=== PATIENT | female | born 1950 | race American Indian/Alaskan Native ===

== ENCOUNTER 2017-04-15 02:19 | Emergency (ER) | payer MEDICARE, BC ==
[2017-04-15 02:44] VITALS: BP 109/76
[2017-04-15] MEDS: Sodium Chloride 0.9% 1,000 ML IV SCH (04:16)
[2017-04-15] MEDS: Ondansetron 4 MG/2 ML SDV IVPUSH ONE (04:17)
[2017-04-15] MEDS: HYDROmorphone 0.5 MG/0.5 ML SYRINGE IVPUSH STA (04:17)
[2017-04-15] MEDS: Iopamidol 612 MG/ML 150 ML Bottle IVPUSH ONE (06:09)
[2017-04-15] MEDS: Diatrizoate Meglumine/Diatrizoate Sodium 37% 120 ML Bottle PO ONE (06:09)
--- NOTE | 2017-04-15 07:09 | CT ---
CT abdomen and pelvis Technique: Multiple axial sections were obtained from above the dome of the diaphragm inferiorly through the pubic symphysis. Intravenous contrast and oral contrast has been given. Delayed images were obtained through the bladder. Comparison: No previous abdominal imaging is available. Findings: Visualized lung bases shows nothing acute. Low-density lesion compatible with cyst is identified within the dome of the right lobe of the liver measuring 1.6 cm. No additional abnormality is identified within the liver. Spleen appears within normal limits. Adrenal glands show no nodule. Right kidney shows a small exophytic cortical cyst measuring 1.4 cm. 2 small cortical cysts are noted within the left kidney as well as a larger cyst within the left kidney measuring 5.7 cm. Kidneys show no hydronephrosis. Aorta shows atherosclerotic change. No aneurysm is seen. No retroperitoneal adenopathy is seen. No mesenteric abnormalities are identified. Appendix is equivocally seen which appears short in size and appears normal in thickness. No inflammatory change is seen within the right lower abdomen. No bowel dilatation is seen. Minimal diverticuli is seen within the sigmoid colon without diverticulitis. Numerous phleboliths are seen within the pelvis. Delayed images shows contrast within the distal ureters and within the bladder. No free fluid or inflammatory change is seen. Fluid is seen within the colon which can be seen normally as well as with diarrhea. Bone window settings were reviewed which shows scattered degenerative change within the spine most prominent at L4-L5 and L5-S1 with disc space narrowing, vacuum phenomena and degenerative apophyseal change. Impression: 1. Fluid within the colon which is incidental if patient has no symptoms of diarrhea. 2. Incidental renal cysts. 3. Other incidental findings. Nothing acute is appreciated on CT study of the abdomen and pelvis. No etiology is identified to explain the patient's right lower quadrant pain. Diagnostic code #2
--- NOTE | 2017-04-15 07:35 | EDM.PDOC ---
ED HPI GENERAL MEDICAL PROBLEM - General Chief Complaint: Abdominal Pain Stated Complaint: ABDOMINAL PAIN/NAUSEA Time Seen by Provider: 04/15/17 03:34 Source of Information: Reports: Patient History Limitations: Reports: No Limitations Right Abdomen Pain Score (Numeric/FACES): 7 - Related Data Allergies Allergy/AdvReac Type Severity Reaction Status Date / Time capsaicin Allergy Rash Verified 04/15/17 02:45 chlorhexidine Allergy Rash Verified 04/15/17 02:45 methadone [Methadone] AdvReac Vomiting Verified 04/15/17 02:45 Home Meds: Home Meds Acetaminophen with Codeine [Acetaminophen-Cod #3] 2 tab PO Q6H PRN #60 tablet [Rx] Omeprazole 40 mg PO DAILY 04/15/17 [History] Topiramate [Topamax] 25 mg PO BID 04/15/17 [History] atorvaSTATin [Lipitor] 20 mg PO DAILY 04/15/17 [History] Past Medical History Cardiovascular History: Reports: High Cholesterol Gastrointestinal History: Reports: Diverticulosis, GERD Neurological History: Reports: Migraines Oncologic (Cancer) History: Reports: Basal Cell Carcinoma (right nose) - Past Surgical History HEENT Surgical History: Reports: Naso-Sinus Surgery (x 3), Tonsillectomy GI Surgical History: Reports: Cholecystectomy, Colonoscopy, EGD Female Surgical History: Reports: Section (x 1), Hysterectomy, Salpingo-Oophorectomy Musculoskeletal Surgical History: Reports: Knee Replacement (right), Other (See Below) (Left hammertoe) Social & Family History - Tobacco Use Smoking Status *Q: Never Smoker Second Hand Smoke Exposure: No - Caffeine Use Caffeine Use: Reports: None - Alcohol Use Alcohol Use History: Yes Days Per Week of Alcohol Use: 0 Number of Drinks Per Day: 0 Total Drinks Per Week: 0 Alcohol Use Frequency: Rarely - Recreational Drug Use Recreational Drug Use: No - Living Situation & Occupation Living situation: Reports: , with Spouse Occupation: Retired ED ROS GENERAL - Review of Systems Review Of Systems: ROS reveals no pertinent complaints other than HPI. ED EXAM, GI/ABD - Physical Exam Exam: See Below Exam Limited By: No Limitations General Appearance: Alert, WD/WN, No Apparent Distress Eyes: Bilateral: Normal Appearance, EOMI Ears: Normal External Exam, Hearing Grossly Normal Nose: Normal Inspection, No Blood Throat/Mouth: Normal Inspection, Normal Lips, Normal Voice, No Airway Compromise Head: Atraumatic, Normocephalic Neck: Normal Inspection, Full Range of Motion Respiratory/Chest: No Respiratory Distress, Lungs Clear, Normal Breath Sounds, No Accessory Muscle Use Cardiovascular: Normal Peripheral Pulses, Regular Rate, Rhythm, No Gallop, No JVD, No Murmur, No Rub GI/Abdominal Exam: Normal Bowel Sounds, Soft, No Organomegaly, No Distention, No Abnormal Bruit, No Mass, Pelvis Stable, Tender (Right lower quadrant only. Nontender elsewhere.), Other (Obese. Psoas sign positive. Obturator sign positive. Heel drop sign positive. Rovsing sign negative.). No: Rebound (Female) Exam: Deferred Rectal (Female) Exam: Deferred Back Exam: Normal Inspection, Full Range of Motion. No: CVA Tenderness (L), CVA Tenderness (R) Extremities: Normal Inspection, Normal Range of Motion, No Pedal Edema, Normal Capillary Refill Neurological: Alert, Oriented, Normal Cognition, No Motor/Sensory Deficits Psychiatric: Normal Affect Skin Exam: Warm, Dry, Intact, Normal Color, No Rash Course - Vital Signs Last Recorded V/S: Last Vital Signs Temp 36.9 C 04/15/17 02:39 Pulse 87 04/15/17 02:39 Resp 18 04/15/17 02:39 BP 109/76 04/15/17 02:39 Pulse Ox 94 L 04/15/17 02:39 - Orders/Labs/Meds Labs: Laboratory Tests 04/15/17 04/15/17 04/15/17 Range/Units 03:29 03:29 06:35 WBC 8.42 (3.98-10.04) K/mm3 RBC 5.02 (3.98-5.22) M/mm3 Hgb 15.6 (11.2-15.7) gm/L Hct 47.0 H (34.1-44.9) % MCV 93.6 (79.4-94.8) fl MCH 31.1 (25.6-32.2) pg MCHC 33.2 (32.2-35.5) g/dl RDW Std Deviation 44.3 (36.4-46.3) fL Plt Count 181 L (182-369) K/mm3 MPV 10.2 (9.4-12.3) fl Neutrophils % (Manual) 86 H (40-60) % Band Neutrophils % 0 (0-10) % Lymphocytes % (Manual) 12 L (20-40) % Atypical Lymphs % 0 % Monocytes % (Manual) 1 L (2-10) % Eosinophils % (Manual) 1 (0.7-5.8) % Basophils % (Manual) 0 L (0.1-1.2) Platelet Estimate Adequate RBC Morph Comment Normal Sodium 140 (136-145) mEq/L Potassium 4.2 (3.5-5.1) mEq/L Chloride 107 (98-107) mEq/L Carbon Dioxide 21 (21-32) mEq/L Anion Gap 16.2 H (5-15) BUN 15 (7-18) mg/dL Creatinine 0.9 (0.55-1.02) mg/dL Est Cr Clr Drug Dosing 51.55 mL/min Estimated GFR (MDRD) > 60 (>60) mL/min BUN/Creatinine Ratio 16.7 (14-18) Glucose 108 (80-115) mg/dL Calcium 8.7 (8.5-10.1) mg/dL Total Bilirubin 0.6 (0.2-1.0) mg/dL AST 25 (15-37) U/L ALT 45 (14-59) U/L Alkaline Phosphatase 105 (46-116) U/L Total Protein 7.3 (6.4-8.2) g/dl Albumin 3.6 (3.4-5.0) g/dl Globulin 3.7 gm/dL Albumin/Globulin Ratio 1.0 (1-2) Lipase 98 (73-393) U/L Urine Color Yellow (Yellow) Urine Appearance Clear (Clear) Urine pH 6.0 (5.0-8.0) Ur Specific [place] 1.015 (1.005-1.030) Urine Protein Negative (Negative) Urine Glucose (UA) Negative (Negative) Urine Ketones Negative (Negative) Urine Occult Blood 2+ H (Negative) Urine Nitrite Negative (Negative) Urine Bilirubin Negative (Negative) Urine Urobilinogen 0.2 (0.2-1.0) Ur Leukocyte Esterase Negative (Negative) Urine RBC 5-10 H (0-5) /hpf Urine WBC 0-5 (0-5) /hpf Ur Epithelial Cells 0-5 (0-5) /hpf Urine Bacteria Few (FEW) /hpf Urine Mucus Few (FEW) /hpf Meds: Medications Discontinued Medications Generic Name Dose Route Start Last Admin Trade Name Lalo PRN Reason Stop Dose Admin Diatrizoate Meglum/Diatrizoate Sod 90 ml 04/15/17 05:34 04/15/17 06:09 Gastrografin 37% PO 04/15/17 05:35 90 ml ONETIME ONE Administration Hydromorphone HCl 1 mg 04/15/17 04:03 04/15/17 04:17 Dilaudid IVPUSH 04/15/17 04:04 1 mg ONETIME STA Administration Sodium Chloride 1,000 mls @ 150 mls/hr 04/15/17 04:15 04/15/17 04:16 Normal Saline IV 150 mls/hr ASDIRECTED FARHAN Administration Iopamidol 120 ml 04/15/17 05:34 04/15/17 06:09 Isovue-300 (61%) IVPUSH 04/15/17 05:35 120 ml ONETIME ONE Administration Ondansetron HCl 4 mg 04/15/17 04:02 04/15/17 04:17 Zofran IVPUSH 04/15/17 04:03 4 mg ONETIME ONE Administration - Re-Assessments/Exams Free Text/Narrative Re-Assessment/Exam: 04/15/17 07:29 CT of the abdomen and pelvis with oral and IV contrast is read by Dr. Mao as: 1. Fluid within the colon which is incidental if patient has no symptoms of diarrhea. 2. Incidental renal cysts. 3. Other incidental findings. Nothing acute is appreciated on CT study of the abdomen and pelvis. No etiology is identified to explain the patient's right lower quadrant pain. 04/15/17 07:34 Test results discussed with the patient and her . Today's workup is unremarkable, and does not explain the cause of the patient's right lower quadrant abdominal pain. I'm recommending she take [id number] Tylenol or ibuprofen as needed. I'm recommending that she follow-up with her PCP, Mary Magana, should her symptoms persist. Departure - Departure Time of Disposition: 07:35 Disposition: Home, Self-Care 01 Condition: Good Clinical Impression: Right lower quadrant abdominal pain of unknown etiology - Discharge Information Instructions: Abdominal Pain, Adult, [id number] Referrals: Karlee Magana [facility] [Primary Care Provider] - Forms: ED Department Discharge Additional Instructions: You were seen in the emergency room for lower right abdominal pain, bloating, nausea, and watery diarrhea. Workup in the ER included blood work, a urinalysis, and a CT scan of your abdomen and pelvis. Your entire workup was unremarkable, and does not explain the cause of your symptoms. We recommend you take [id number] Tylenol or ibuprofen as needed for discomfort. If your symptoms persist, please follow-up with your PCP, Mary Magana, as needed. If any other problems, please do not hesitate to return to the ER.
== END 2017-04-15 07:51 | disposition home or self-care (01) ==
LOC: JD.ED 02:19
DX: R10.31 Right lower quadrant pain (principal); E78.00 Pure hypercholesterolemia, unspecified; Z88.8 Allergy status to other drugs, medicaments and biological substances; Z79.899 Other long term (current) drug therapy
CPT/HCPCS: 36415; 74177; 80053; 81001; 83690; 85025; 96361; 96374; 96375; 99284; J1170; J2405; J7040; P9612; Q9963; Q9967

== ENCOUNTER 2018-06-06 21:43 | Emergency (ER) | payer MEDICARE, BC ==
[2018-06-06 21:55] VITALS: BP 150/95
--- NOTE | 2018-06-06 22:12 | EDM.PDOC ---
ED HPI GENERAL MEDICAL PROBLEM - General Chief Complaint: Respiratory Problem Stated Complaint: fever cough abdominal pain Time Seen by Provider: 06/06/18 22:11 - History of Present Illness INITIAL COMMENTS - FREE TEXT/NARRATIVE: 68-year-old female comes into the emergency room with a 2 to three-day history of cough that is progressively getting worse she's having some abdominal discomfort started after the cough she wonders if her diverticulitis is getting worse. This started 3 days ago the cough is getting a little bit worse is nonproductive dry hacking irritation cough she feels warm at times. She has some abdominal discomfort without nausea vomiting constipation or diarrhea. She has a history of diverticulosis and still has her appendix. She has no history of coronary artery disease. Abdominal Pain Score (Numeric/FACES): 9 - Related Data Allergies Allergy/AdvReac Type Severity Reaction Status Date / Time capsaicin Allergy Rash Verified 04/15/17 02:45 chlorhexidine Allergy Rash Verified 04/15/17 02:45 Iodinated Contrast- Oral and Allergy Rash Verified 06/06/18 21:53 IV Dye methadone [Methadone] AdvReac Vomiting Verified 04/15/17 02:45 Home Meds: Home Meds Acetaminophen with Codeine [Acetaminophen-Cod #3] 2 tab PO Q6H PRN #60 tablet [Rx] Omeprazole 40 mg PO DAILY 04/15/17 [History] Topiramate [Topamax] 25 mg PO BID 04/15/17 [History] atorvaSTATin [Lipitor] 20 mg PO DAILY 04/15/17 [History] Doxycycline Hyclate 100 mg PO Q12H #20 capsule 06/06/18 [Rx] Past Medical History Other HEENT History: 3 sinus surgerys Cardiovascular History: Reports: High Cholesterol, Hypertension Gastrointestinal History: Reports: Diverticulosis, GERD 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: Musculoskeletal History: Reports: Arthritis Neurological History: Reports: Migraines Psychiatric History: Reports: Anxiety Endocrine/Metabolic History: Reports: Hyperthyroidism Hematologic History: Reports: Blood Transfusion(s) Oncologic (Cancer) History: Reports: Basal Cell Carcinoma Other Oncologic History: basal cell carcinma on right side of nose - Past Surgical History HEENT Surgical History: Reports: Naso-Sinus Surgery, Tonsillectomy GI Surgical History: Reports: Cholecystectomy, Colonoscopy, EGD Female Surgical History: Reports: Section, Hysterectomy, Salpingo- Oophorectomy Musculoskeletal Surgical History: Reports: Knee Replacement Social & Family History - Tobacco Use Smoking Status *Q: Former Smoker Used Tobacco, but Quit: Yes Month/Year Tobacco Last Used: 1987 - Caffeine Use Caffeine Use: Reports: None - Recreational Drug Use Recreational Drug Use: No - Living Situation & Occupation Living situation: Reports: , with Spouse Occupation: Retired ED ROS GENERAL - Review of Systems Review Of Systems: See Below Constitutional: Reports: Fever. Denies: Chills, Diaphoresis HEENT: Reports: No Symptoms Respiratory: Reports: Cough. Denies: Sputum Cardiovascular: Reports: Other (Discomfort from the cough) Endocrine: Reports: No Symptoms GI/Abdominal: Reports: Abdominal Pain, Other (Suspect a lot of her discomfort is secondary to the cough is discomfort seems to be getting worse longer the cough goes on and really with no other gastrointestinal symptoms). Denies: Constipation, Diarrhea, Nausea, Vomiting Musculoskeletal: Reports: Other Skin: Reports: No Symptoms (She's had some generalized achiness) Neurological: Reports: No Symptoms ED EXAM, GENERAL - Physical Exam Exam: See Below Exam Limited By: No Limitations General Appearance: Alert, No Apparent Distress Eye Exam: Bilateral Eye: Normal Inspection Ears: Normal External Exam, Normal Canal, Hearing Grossly Normal, Normal TMs Nose: Normal Inspection Throat/Mouth: Normal Inspection Head: Atraumatic, Normocephalic Neck: Normal Inspection, Supple, Non-Tender, Full Range of Motion Respiratory/Chest: No Respiratory Distress, Lungs Clear, Normal Breath Sounds Cardiovascular: Normal Peripheral Pulses, Regular Rate, Rhythm, No Edema GI/Abdominal: Normal Bowel Sounds, Soft, Other (Vague discomfort seems to be worse along the lower ribs in the anterior abdomen no rigidity rebound or guarding) Neurological: Alert, Oriented, Normal Cognition Course - Vital Signs Last Recorded V/S: Last Vital Signs Temp 37.9 C 06/06/18 21:53 Pulse 96 06/06/18 21:53 Resp 16 06/06/18 21:53 BP 150/95 H 06/06/18 21:53 Pulse Ox 92 L 06/06/18 21:53 - Orders/Labs/Meds Orders: Active Orders 24 hr Category Date Time Status EKG Documentation Completion [RC] STAT Care 06/06/18 22:18 Active Chest 2V [CR] Stat Exams 06/06/18 22:18 Taken Labs: Laboratory Tests 06/06/18 06/06/18 Range/Units 22:38 22:38 WBC 4.67 (3.98-10.04) K/mm3 RBC 4.40 (3.98-5.22) M/mm3 Hgb 14.0 (11.2-15.7) gm/L Hct 42.0 (34.1-44.9) % MCV 95.5 H (79.4-94.8) fl MCH 31.8 (25.6-32.2) pg MCHC 33.3 (32.2-35.5) g/dl RDW Std Deviation 44.0 (36.4-46.3) fL Plt Count 143 L (182-369) K/mm3 MPV 10.2 (9.4-12.3) fl Neutrophils % (Manual) 73 H (40-60) % Band Neutrophils % 2 (0-10) % Lymphocytes % (Manual) 21 (20-40) % Atypical Lymphs % 0 % Monocytes % (Manual) 4 (2-10) % Eosinophils % (Manual) 0 L (0.7-5.8) % Basophils % (Manual) 0 L (0.1-1.2) Platelet Estimate Adequate Plt Morphology Comment Normal RBC Morph Comment Normal Sodium 135 L (136-145) mEq/L Potassium 3.7 (3.5-5.1) mEq/L Chloride 101 (98-107) mEq/L Carbon Dioxide 22 (21-32) mEq/L Anion Gap 15.7 H (5-15) BUN 8 (7-18) mg/dL Creatinine 0.8 (0.55-1.02) mg/dL Est Cr Clr Drug Dosing 57.22 mL/min Estimated GFR (MDRD) > 60 (>60) mL/min BUN/Creatinine Ratio 10.0 L (14-18) Glucose 109 (80-115) mg/dL Calcium 8.8 (8.5-10.1) mg/dL Total Bilirubin 0.6 (0.2-1.0) mg/dL AST 21 (15-37) U/L ALT 30 (14-59) U/L Alkaline Phosphatase 88 (46-116) U/L Troponin I < 0.017 (0.00-0.056) ng/mL Total Protein 7.6 (6.4-8.2) g/dl Albumin 3.6 (3.4-5.0) g/dl Globulin 4.0 gm/dL Albumin/Globulin Ratio 0.9 L (1-2) Meds: Medications Discontinued Medications Generic Name Dose Route Start Last Admin Trade Name Lalo PRN Reason Stop Dose Admin Albuterol 8 gm 06/06/18 22:26 06/06/18 22:47 Proventil Hfa INH 06/06/18 22:27 Not Given ONETIME ONE Albuterol 6.7 gm 06/06/18 22:45 06/06/18 23:03 Proventil Hfa INH 06/06/18 22:46 2 puff ONETIME ONE Administration - Re-Assessments/Exams Free Text/Narrative Re-Assessment/Exam: 06/06/18 23:39 Chest x-ray shows questionable retrocardiac infiltrate that is barely seen in the right lower lobe on the AP is somewhat rotated. Patient be started on a week 's worth of doxycycline 100 mg twice a day she'll be given guaifenesin with codeine 100 mg guaifenesin 6.33 mg codeine and 5 mL of solution 15 mL every 4-6 hours 473 mL dispensed she is started on albuterol MDI. Departure - Departure Time of Disposition: 23:40 Disposition: Home, Self-Care 01 Clinical Impression: Bronchitis, Pneumonia - Discharge Information Prescriptions: Doxycycline Hyclate 100 mg PO Q12H #20 capsule Referrals: PCP,Unknown [Primary Care Provider] - Forms: ED Department Discharge Additional Instructions: Return to the emergency room with any questions problems worsening symptoms. Take the antibiotics as directed. Use the inhaler as directed 2 puffs every 4 hours while awake. Use the cough syrup as needed. Take the antibiotics until all gone. Follow-up in the clinic at the end of the week if needed - My Orders Last 24 Hours: My Active Orders 06/06/18 22:18 EKG Documentation Completion [RC] STAT Chest 2V [CR] Stat - Assessment/Plan Last 24 Hours: My Active Orders 06/06/18 22:18 EKG Documentation Completion [RC] STAT Chest 2V [CR] Stat
[2018-06-06] MEDS ORDERED: Albuterol 6.7 GM Inhaler INH ONE ×2 (22:26→22:45)
[2018-06-06] MEDS ORDERED: Doxycycline 100 MG Cap PO ONE (23:42)
[2018-06-06] MEDS ORDERED: Azithromycin 250 MG Tab PO ONE (23:47)
--- NOTE | 2018-06-07 06:27 | CR ---
Chest: Two views of the chest were obtained. Comparison: Prior chest x-ray of 11/03/15. Heart size is normal. Tortuous thoracic aorta is seen. Fullness is noted within the right hilar region. This appears fairly stable from previous exam. Perihilar markings are minimally increased most likely representing bronchitis. Lungs otherwise are clear. Impression: 1. Possible mild bronchitis. 2. Fullness within the right hilar region believed to be fairly stable. Diagnostic code #3
[2018-06-07] MEDS ORDERED: Azithromycin 250 MG Tab PO ONE (23:47)
== END 2018-06-06 23:57 | disposition home or self-care (01) ==
LOC: JD.ED 21:43
DX: J18.9 Pneumonia, unspecified organism (principal); J40 Bronchitis, not specified as acute or chronic; Z88.8 Allergy status to other drugs, medicaments and biological substances; Z79.899 Other long term (current) drug therapy; Z87.891 Personal history of nicotine dependence
CPT/HCPCS: 36415; 71046; 80053; 84484; 85007; 85027; 87804; 93005; 94640; 99284; A9270; 99283

== ENCOUNTER 2018-06-18 19:07 | Emergency (ER) | payer MEDICARE, BC ==
[2018-06-18 19:27] VITALS: BP 160/81
[2018-06-18] MEDS ORDERED: Ibuprofen 600 MG Tab PO ONE (19:42)
--- NOTE | 2018-06-18 19:50 | EDM.PDOC ---
ED HPI GENERAL MEDICAL PROBLEM - General Chief Complaint: Trauma Stated Complaint: FELL ON RIGHT SIDE INJURIED FACE AND HAND Time Seen by Provider: 06/18/18 19:24 Source of Information: Reports: Patient, Family (), RN Notes Reviewed History Limitations: Reports: No Limitations - History of Present Illness INITIAL COMMENTS - FREE TEXT/NARRATIVE: The patient states that she tripped and fell on a wooden floor in her home around 17:00 this evening. She states that she went down fast, initially landing on her right knee, then falling forward onto her right upper extremity and striking her face. There was no loss of consciousness. The patient presents with pain to her right elbow, her right forearm, her right wrist, and her right knee. She also has a swollen upper lip, and states that she had initially tasted some blood. She also has a contusion just over her right eye. The patient's PCP is Dr. Kayleen Aguiar. Right Knee Pain Score (Numeric/FACES): 10 Right Hand Pain Score (Numeric/FACES): 10 - Related Data Allergies Allergy/AdvReac Type Severity Reaction Status Date / Time capsaicin Allergy Rash Verified 06/18/18 19:22 chlorhexidine Allergy Rash Verified 06/18/18 19:22 doxycycline Allergy Cannot Verified 06/18/18 19:22 Remember Iodinated Contrast- Oral and Allergy Rash Verified 06/18/18 19:22 IV Dye methadone [Methadone] AdvReac Vomiting Verified 06/18/18 19:22 Home Meds: Home Meds Acetaminophen with Codeine [Acetaminophen-Cod #3] 2 tab PO Q6H PRN #60 tablet [Rx] Omeprazole 40 mg PO DAILY 04/15/17 [History] Topiramate [Topamax] 25 mg PO BID 04/15/17 [History] atorvaSTATin [Lipitor] 20 mg PO DAILY 04/15/17 [History] Past Medical History Cardiovascular History: Reports: High Cholesterol Gastrointestinal History: Reports: Diverticulosis, GERD [employer] SOFTWARE [employer]ER History: Reports: Musculoskeletal History: Reports: Osteoarthritis Neurological History: Reports: Migraines Endocrine/Metabolic History: Reports: Obesity/BMI 30+ Hematologic History: Reports: Blood Transfusion(s) Oncologic (Cancer) History: Reports: Basal Cell Carcinoma (right nose) - Past Surgical History HEENT Surgical History: Reports: Naso-Sinus Surgery (x 3), Tonsillectomy GI Surgical History: Reports: Cholecystectomy (1998), Colonoscopy (x 1), EGD (x 2) Female Surgical History: Reports: Section (x 1), Hysterectomy ( complete), Salpingo-Oophorectomy Musculoskeletal Surgical History: Reports: Knee Replacement (right, 2013), Other (See Below) (Left marissa) Social & Family History - Tobacco Use Smoking Status *Q: Never Smoker - Caffeine Use Caffeine Use: Reports: None - Alcohol Use Alcohol Use History: Yes Alcohol Use Frequency: Rarely - Recreational Drug Use Recreational Drug Use: No - Living Situation & Occupation Living situation: Reports: , with Spouse Occupation: Retired Review of Systems - Review of Systems Review Of Systems: ROS reveals no pertinent complaints other than HPI. ED EXAM, GENERAL - Physical Exam Exam: See Below Exam Limited By: No Limitations General Appearance: Alert, WD/WN, No Apparent Distress Eye Exam: Bilateral Eye: EOMI, Normal Inspection Ears: Normal External Exam, Hearing Grossly Normal Nose: Normal Inspection Throat/Mouth: Normal Inspection, Normal Teeth, Normal Gums, Normal Oropharynx, Normal Voice, No Airway Compromise, Other (Sqollen upper lip. Small abrasions noted on the lip, but no laceration.) Head: Normocephalic, Other (Small area of erythema and minimal swelling to the forehead just over the right eye) Neck: Normal Inspection, Supple, Non-Tender, Full Range of Motion Respiratory/Chest: No Respiratory Distress, Lungs Clear, Normal Breath Sounds, No Accessory Muscle Use Cardiovascular: Normal Peripheral Pulses, Regular Rate, Rhythm, No Gallop, No JVD, No Murmur, No Rub Peripheral Pulses: 4+: Radial (L) GI/Abdominal: Normal Bowel Sounds, Soft, Non-Tender, No Organomegaly, No Distention, No Abnormal Bruit, No Mass, Other (Obese) (Female) Exam: Deferred Rectal (Female) Exam: Deferred Back Exam: Normal Inspection, Full Range of Motion, NT Extremities: Normal Capillary Refill, Other (No visible abnormality to the right upper arm, elbow, or forearm, although the patient reports mild tenderness to palpation of the lateral and medial aspects of the elbow. No tenderness to the olecranon. Pain is not induced with compression of the mid forearm, and the patient's forearm is not tender to palpation. There is a sizable hematoma to the dorsal aspect of the right hand, centered over the 4th metacarpal bone. The patient reports pain when attempting to move her 4th and 5th fingers. Neurovascular status of the right upper extremity is intact. No visible abnormality to the patient's right knee, other than a well-healed midline anterior surgical scar. The patient reports tenderness to palpation of the anterior knee. Neurovascular status of the right lower extremity is intact.) Neurological: Alert, Oriented, Normal Cognition, No Motor/Sensory Deficits Psychiatric: Normal Affect Skin Exam: Warm, Dry, Intact, Normal Color, No Rash Course - Vital Signs Last Recorded V/S: Last Vital Signs Temp 36.6 C 06/18/18 19:22 Pulse 64 06/18/18 19:22 Resp 18 06/18/18 19:22 BP 160/81 H 06/18/18 19:22 Pulse Ox 94 L 06/18/18 19:22 - Orders/Labs/Meds Orders: Active Orders 24 hr Category Date Time Status Forearm 2V Rt [CR] Stat Exams 06/18/18 19:42 Ordered Hand Comp Min 3V Rt [CR] Stat Exams 06/18/18 19:43 Ordered Knee 3V Rt [CR] Stat Exams 06/18/18 19:44 Taken Meds: Medications Discontinued Medications Generic Name Dose Route Start Last Admin Trade Name Freq PRN Reason Stop Dose Admin Ibuprofen 600 mg 06/18/18 19:42 06/18/18 19:52 Motrin PO 06/18/18 19:43 600 mg ONETIME ONE Administration - Re-Assessments/Exams Free Text/Narrative Re-Assessment/Exam: 06/18/18 19:46 The patient has relatively minor pain and tenderness to her right elbow, pain but no tenderness to her right forearm, and a sizable hematoma to her posterior right hand. She is also complaining of pain to her anterior right knee, although no visible abnormality is seen. I have ordered x-rays of her right forearm, which will include the elbow, her right hand, and right knee. The patient was offered pain medication and elected to take ibuprofen. 06/18/18 20:46 2-view radiographs of the right forearm appear to be normal. No fractures or dislocations identified. Formal read per the Radiologist pending. 4-view radiographs of the right hand appear to demonstrate significant degenerative joint changes, but no fractures or dislocations. Formal read per the Radiologist pending. 2-view radiographs of the right knee, including a sunrise view, appear to demonstrate total knee arthroplasty hardware in good position. No patellar fracture identified. Formal read per the Radiologist pending. 06/18/18 20:51 X-ray results discussed with the patient and her . The patient appears to have several contusions, but no serious injuries. I'm recommending that she ice her hand for the next couple of days to help minimize swelling, and take [id number] ibuprofen as needed for discomfort. Departure - Departure Time of Disposition: 20:52 Disposition: Home, Self-Care 01 Condition: Good Clinical Impression: Fall at home, Traumatic hematoma of right hand, Multiple contusions - Discharge Information *PRESCRIPTION DRUG MONITORING PROGRAM REVIEWED*: Not Applicable *COPY OF PRESCRIPTION DRUG MONITORING REPORT IN PATIENT SHARITA: Not Applicable Referrals: Kayleen Aguiar MD [Ordering Only Provider] - Forms: ED Department Discharge Additional Instructions: You were seen in the emergency room after tripping and falling at home, injuring your upper lip, right arm, right hand, and right knee. Workup in the ER included x-rays of your right forearm, your right hand, and right knee. All returned negative. No broken bones were found. We recommend that you continue to ice the back of your right hand for the next 2 days, to help minimize swelling. Take [id number] ibuprofen, 2-3 tablets (400-600 mg) every 8 hours, with food, as needed for discomfort. If any other problems, please do not hesitate to return to the ER. - My Orders Last 24 Hours: My Active Orders 06/18/18 19:42 Forearm 2V Rt [CR] Stat 06/18/18 19:43 Hand Comp Min 3V Rt [CR] Stat 06/18/18 19:44 Knee 3V Rt [CR] Stat - Assessment/Plan Last 24 Hours: My Active Orders 06/18/18 19:42 Forearm 2V Rt [CR] Stat 06/18/18 19:43 Hand Comp Min 3V Rt [CR] Stat 06/18/18 19:44 Knee 3V Rt [CR] Stat
--- NOTE | 2018-06-19 05:52 | CR ---
Right knee: AP, lateral and sunrise patellar views of the right knee were obtained. Comparison: No previous knee exam. Knee prosthesis is seen. Components are aligned. Underlying bony structures are intact. Impression: 1. Knee prosthesis. Nothing acute is seen on right knee exam. Diagnostic code #2
--- NOTE | 2018-06-19 06:27 | CR ---
Right hand: Four views of the right hand were obtained. Comparison: No previous hand exam. Severe degenerative change is noted within the CMC joint of the thumb. Degenerative change is also scattered within the DIP and PIP joints. Bony structures are osteopenic. Soft tissue swelling is noted dorsally. Fracture is identified within the base of the fifth metacarpal with articular extension into the CMC joint. Alignment remains close to anatomic. No other acute abnormality is seen. Impression: 1. Fracture within the base of the fifth metacarpal as described above. 2. Soft tissue swelling. 3. Degenerative change. Diagnostic code #3
--- NOTE | 2018-06-19 06:27 | CR ---
Right forearm: Two views of the right forearm were obtained. Comparison: No previous study. Degenerative change is noted within the CMC joint of the thumb. No fracture or other bony abnormality is seen. Impression: 1. Degenerative change. Nothing acute is seen. Diagnostic code #2
== END 2018-06-18 21:02 | disposition home or self-care (01) ==
LOC: JD.ED 19:07
DX: S62.316A Displaced fracture of base of fifth metacarpal bone, right hand, initial encounter for closed fracture (principal); M25.561 Pain in right knee; E78.00 Pure hypercholesterolemia, unspecified; K21.9 Gastro-esophageal reflux disease without esophagitis; W01.0XXA Fall on same level from slipping, tripping and stumbling without subsequent striking against object, initial encounter; Z88.8 Allergy status to other drugs, medicaments and biological substances; Z79.899 Other long term (current) drug therapy
CPT/HCPCS: 29105; 73090; 73130; 73562; 99283; A9270